=== PATIENT | female | born 2000 | race Hispanic/Latino ===

== ENCOUNTER 2018-07-28 14:58 | Emergency (ER) | payer OTHER, SELFPAY ==
[2018-07-28] MEDS ORDERED: ACETAMINOPHEN 500 MG TAB ONE (16:29)
[2018-07-28] MEDS ORDERED: IBUPROFEN 400 MG TAB ONE (16:29)
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
[2018-07-28 17:49] VITALS: BP 120/65; TEMP 98.2; O2SAT 98
== END 2018-07-28 17:41 | disposition home or self-care (01) ==
LOC: ER 14:58
DX: S00.33XA Contusion of nose, initial encounter (principal); Y04.0XXA Assault by unarmed brawl or fight, initial encounter
CPT/HCPCS: 70160; 99283